=== PATIENT | female | born 1965 | race Caucasian/White ===

== ENCOUNTER 2016-11-29 09:36 | Emergency (ER) | payer BC ==
[~2016-11-29] VITALS: Ht 157.5 cm; Wt 110.0 kg
[~2016-11-29 09:36] MED LIST: ADVAIR 250/501 DIS1 IH; ASCOL PO; B-12250 MCG PO; BENTYL10 MG PO; COLESTID1 GM PO; FIORICET,ESG1 TABLET PO; FLEXERIL10 MG PO; IRON18 MG PO; MOTRIN600 MG PO; MULTIPLE VITAM1 EACH PO; NEXIUM40 MG PO; NORCO 5/3251 TABLET PO; PRINZIDE 20-251 EACH PO; RANITIDINE HCL150 MG PO; VITAMIN B6100 MG PO; VITAMIN D31000 UNI2 PO
[2016-11-29 10:30] LABS: HEMATOCRIT 41.2 % (36.0-46.0); MCH 28.9 PG (29.0-34.0); MCHC 33.3 G/DL (30.0-36.0); MCV 86.9 FL (83-99); MEAN PLAT.VOLUME 9.5 uM^3 (9.5-12.4); PLATELET COUNT 267 K/uL (156-360); RBC DIS.WIDTH-CV 13.2 % (11.8-14.6); RED BLOOD COUNT 4.74 M/uL (3.80-5.20); WHITE BLOOD COUNT 11.4 K/uL (4.1-10.2)
[2016-11-29 10:40] LABS: CHLORIDE 106 mEq/L (99-109); POTASSIUM 3.7 mEq/L (3.7-5.4); SODIUM 137 mEq/L (136-147)
[2016-11-29 10:42] LABS: GLUCOSE 100 mg/dL (70-99)
[2016-11-29 10:43] LABS: ANION GAP 9 MEQ/L (2-14)
[2016-11-29 10:46] LABS: GFR ESTIMATE (CALCULATED) > 59 mL/min/; UREA NITROGEN (BUN) 15 mg/dL (9-23)
[2016-11-29 10:52] LABS: TROP-I INTERPRETATION NEGATIVE; TROPONIN-I < 0.01 ng/mL (0.0-0.30)
[2016-11-29 10:57] LABS: QUANTITATIVE HCG < 4.0 MIU/ML
[2016-11-29] MEDS ORDERED: REGLAN10 MG PO (12:23)
[2016-11-29 13:04] VITALS: BP 108/74
== END 2016-11-29 13:14 | disposition home or self-care (01) ==
LOC: EME 09:36
PROVIDERS: Emergency Medicine
DX: R07.9 Chest pain, unspecified (principal); I10 Essential (primary) hypertension; Z82.49 Family history of ischemic heart disease and other diseases of the circulatory system; J45.909 Unspecified asthma, uncomplicated
CPT/HCPCS: 71010; 80048; 84484; 84702; 85027; 93005; 99281; 99284; J2765